=== PATIENT | male | born 1955 | race Caucasian/White ===

== ENCOUNTER 2024-02-25 19:36 | Inpatient (IN) | payer MEDICARE, BC, SELFPAY ==
[2024-02-25] VITALS (14 sets, daily range): BP systolic 138–184; BP diastolic 70–106; BMI 31.1; BMI 30.1
--- NOTE | 2024-02-25 12:56 | ED.GENMED ---
History of Present Illness
General
Chief Complaint: Abdominal Symptoms
Source: patient
Exam Limitations: none
Time Seen by Provider: 02/25/24 12:43
Travel History
Have you had any contact with someone who has COVID-19?: No
Do you have any symptoms of coronavirus? Fever > 100 degrees, chills, cough, shortness of breath, sore throat, loss of taste or smell, muscle aches, or headache?: No
History of Present Illness
History of Present Illness:
68-year-old male presents in referral from family doctor. Patient was presumed to have diverticulitis about 10 days ago. He was started on Augmentin and has had 9 days worth of Augmentin out of the prescribed 14. His pain is improved but still
persistent. He denies a fever he notes he is moving his bowels. He is eating a bland diet. Upon recheck with family doctor today he was also noted to be in atrial fibrillation. Patient has a remote history of atrial flutter which required a
cardioversion and 1 months worth of anticoagulation. He is currently not on anticoagulation. He is uncertain when the atrial fibrillation started. He denies chest pain or shortness of breath. No leg swelling or calf pain. No other complaints at
this time. He is on metoprolol 25mg daily.
Phy Exam
Physical Exam
Physical Exam:
General: Well-appearing male no acute respiratory distress
HEENT: Normocephalic atraumatic neck is supple
Heart: Irregular rate and rhythm
Lungs: Clear no wheeze or rales
Abdomen: Soft mildly tender to the left lower quadrant no guarding rebound normal bowel sounds
Extremities: No cyanosis or edema
Scores
[id number] Score for Afib Stroke Risk
Age in Years (65=0, 65-74=1, >/=75=2): 65-74
Sex (Female=+1): Male
Congestive Heart Failure History (Yes=+1): No
Hypertension History (Yes=+1): Yes
Stroke/TIA/Thromboembolism History (Yes=+2): No
Vascular Disease History (Yes=+1): No
Diabetes Mellitus (Yes=+1): No
Score: 2
Anticoagulation Recommendations: Recommend anticoagulation (as validated in nonvalvular fib)
Course
Orders/Labs/Results
Orders:
Orders
02/25/24 12:12
Electrocardiogram (*1) Urgent
Reason for Study: Atrial Fibrillation
EKG- Treatment ONCE
02/25/24 12:32
Cardiac Monitoring- Treatment ONCE
IV Insert/Care/Rem.- Treatment PRN
02/25/24 12:51
Complete Blood Count/With Diff Urgent
Comprehensive Metabolic Panel Urgent
TSH Reflex To Free T4 Urgent
Troponin I Urgent
02/25/24 12:56
Add On- LAB Urgent
Tests Added?: tsh reflex to t4
02/25/24 14:31
Apixaban [Eliquis] 5 mg PO NOW STA
02/25/24 14:32
CT Abd/pelvis W Iv Cont Urgent
Comment:
Reason For Exam: llq pain
02/25/24 17:56
Piperacillin/Tazo 3.375 Gram [Zosyn] 3.375 gram in 50 ml IV NOW
Abnormal Lab Results
02/25/24
12:51
RBC 4.17 L 10^6/uL
(4.70-6.10)
Hgb 11.1 L g/dL
(13.0-18.0)
Hct 35.0 L %
(39.0-52.0)
MCH 26.6 L pg
(27.0-31.0)
MCHC 31.7 L g/dL
(33.0-37.0)
Absolute Neuts (auto) 6.9 H 10^3/uL
(1.4-6.5)
Absolute Lymphs (auto) 0.8 L 10^3/uL
(1.2-3.4)
Neutrophils % 84.2 H %
(42.2-75.2)
Lymphocytes % 9.4 L %
(20.5-51.1)
Glucose 107 H mg/dl
(70-99)
Alkaline Phosphatase 136 H U/L
(38-126)
02/25/24 12:51
02/25/24 12:51
Vital Signs
Initial and Last Documented VS:
Initial Vital Signs
Temp Pulse Resp BP Pulse Ox
99.1 F 79 18 167/93 99
02/25/24 12:06 02/25/24 12:06 02/25/24 12:06 02/25/24 12:06 02/25/24 12:06
Last Documented Vital Signs
Temp Pulse Resp BP Pulse Ox
99.1 F 80 17 155/95 98
02/25/24 12:06 02/25/24 16:00 02/25/24 16:00 02/25/24 16:00 02/25/24 16:00
MDM/Problems Addressed
Differential Diagnosis Includes:
Persistent left lower abdominal pain after presumed to have diverticulitis currently on Augmentin. Question persistent diverticulitis versus abscess or colitis. CT pending.
Atrial fibrillation. History of atrial flutter requiring cardioversion. Onset of A-fib unknown. Rate controlled. Not a cardioversion candidate through the ER secondary to uncertainty of onset. [id number] 2 is a score of 2. Question need for
anticoagulation. He is on metoprolol 25 mg daily rate control. Vitals are stable. Will obtain labs including TSH chemistry and troponin.
*Critical Care Note
Total Time (30-74mins, 75-104mins- exclusive of procedures): Not Applicable
Update Note
Update Note:
Discussed new diagnosis of atrial fibrillation with [facility] cardiology, Dr. Wen who recommended Eliquis initiation. He is rate controlled no further intervention needed. However, patient does have a 5 cm rim-enhancing collection in the
right pelvis question possible abscess versus necrotic lymph node. Patient has a history of radical prostatectomy 3 years ago done at [place]. This also involved lymph node resection of the pelvis. Will cover for potential of abscess with IV
Zosyn. Will hold on Eliquis for now given pending potential drainage of abscess. Discussed with cardiology and hospitalist
ED Attending Note
-
Portions of this chart may have been created with voice recognition software.� Occasional wrong word or��sound alike� substitutions may have occurred due to the inherent limitations of voice recognition software.
Discharge Plan
Departure
Patient Disposition: Admit
Date of Disposition: 02/25/24
Time of Disposition: 17:58
Admit to: Telemetry
Presentation/result/management discussed w/ accepting MD/DO: Hospitalist
Discharge Problem:
Intra-abdominal abscess
Prescriptions:
No Action
cyclobenzaprine 10 MG tablet
10 mg PO Q8HPRN PRN (Reason: pain)
metoprolol succinate 50 MG tablet extended release 24 hr
50 mg PO DAILY
oxycodone-acetaminophen [Percocet] 1 EACH tablet
1 ea PO Q4HPRN PRN (Reason: pain)
azelastine 137 MCG/SPRAY aerosol,spray
1 spray intranasal BID
levofloxacin 500 MG tablet
500 mg PO DAILY
docosahexaenoic acid-epa 1 CAP capsule
2 cap PO QPM
cyclosporine [Restasis] 10 DROPS dropperette
2 drops ophthalmic (eye) BID Qty: 0 0RF
Referrals:
Zenon Kim MD [Family Provider] -
Interventions
Interventions:
*Risk Screen - Suicide Last Done: 02/25/24 12:06
*General Assessment Last Done: 02/25/24 12:06
*Neglect/Abuse Screening Last Done: 02/25/24 12:06
ED- Fall Risk Assessment Last Done: 02/25/24 12:45
*ED COVID-19 Vaccine History Last Done: 02/25/24 12:45
CS-Ltyedt-Vlnvpnxlqi Assessment Last Done: 02/25/24 13:02
Discharge Date and Time
Print Language: YORUBA
--- NOTE | 2024-02-25 13:04 | EDRN ---
chaya JENSEN in to see pt now and at 12:40.
[2024-02-25 13:07] LABS: % Basophils 0.4 % (0-2); % Eosinophils 0.9 % (0-6); % Immature Granulocytes 0.4 % (0-0.5); % Lymphocytes 9.4 % (20.5-51.1); % Monocytes 4.7 % (1.7-9.3); % Neutrophils 84.2 % (42.2-75.2); Absolute Eosinophils 0.1 10^3/uL (0-0.7); Absolute Lymphocytes 0.8 10^3/uL (1.2-3.4); Absolute Monocytes 0.4 10^3/uL (0.1-0.6); Absolute Neutrophils 6.9 10^3/uL (1.4-6.5); Hemoglobin 11.1 g/dL (13.0-18.0); Mean Corp Hgb Conc. 31.7 g/dL (33.0-37.0); Mean Corpuscular Hgb 26.6 pg (27.0-31.0); Mean Corpuscular Volume 83.9 fL (80.0-94.0); Nucleated Red Blood Cells % 0 % (-); Platelet Count 396 10^3/uL (130-400); Red Blood Cell Count 4.17 10^6/uL (4.70-6.10); Red Cell Dist. Width 14.2 % (11.5-14.5); White Blood Cell Count 8.2 10^3/uL (4.8-10.8)
[2024-02-25 13:28] LABS: Troponin I < 0.012 ng/ml
[2024-02-25 13:30] LABS: ALT (SGPT) 26 U/L (0-50); AST (SGOT) 25 U/L (17-59); Albumin 3.7 g/dl (3.5-5.0); Alkaline Phosphatase 136 U/L (38-126); Blood Urea Nitrogen 15 mg/dl (9-20); Calcium 10.2 mg/dl (8.4-10.2); Carbon Dioxide 24 mmol/L (22-30); Chloride 107 mmol/L (98-107); Estimated Creatinine Clearance 124 ml/min; Glucose 107 mg/dl (70-99); Potassium 4.3 mmol/L (3.5-5.1); Sodium 136 mmol/L (135-145); Total Bilirubin 0.5 mg/dl (0.2-1.3); Total Protein 6.7 g/dl (6.3-8.2); eGFR > 60.00
--- NOTE | 2024-02-25 15:47 | EDRN ---
Pt has an order for eliquis but stated to me when I went to administer it that it is pending CT results.
[2024-02-25 15:49] LABS: TSH Reflex To Free T4 0.89 uIU/ml (0.47-4.68)
--- NOTE | 2024-02-25 17:39 | EDRN ---
Pt was ordered Eliquis to be administered post CT results. Per Cherelle JENSEN no Peter r/t results of CT showing possible abscess, needing drainage.
[2024-02-25] MEDS: ZOSYN 50 IV (18:29)
--- NOTE | 2024-02-25 18:31 | HPS.HSE ---
Family Physician
-
Family Physician: eZnon Kim
Chief Complaint
-
abdominal pain
History of Present Illness
68 y/o M hx of prostate ca s/p radical prostatectomy, HTN, HLD, presents to ER For abdominal imaging and new Afib. He was diagnosed clinically with diverticulitis 9 days ago after having Lower abdominal pain. he was placed on Augmentin with initial
improvement until his pain returned (remains persistent mostly). He was asked to come into PCP office who noted patient is in new Afib and therefore referred him to ER For imaging.
Patient reports pain is RLQ and radiates toward RUQ and LLQ. No nausea/vomiting. No fever but reports night sweats. No chest pain, sob, palpitations. no symptoms. Reports 20 lbs weight loss in 3 months (intentional with keto diet). No loss of
appetite. No chills. No Edema.
In ER, CT imaging revealed R pelvis mass/collection. Patient admitted for evaluation.
Medical History
Past Medical History
Past Medical History: Reports Other (prostate ca s/p radical prostatectomy, HTN, HLD, hx of Aflutter s/p cardioversion 7 years ago)
Past Surgical History: Reports Tonsilectomy and Other ( radical prostatectomy)
Social History
Tobacco: Non-smoker
Alcohol: None
Drug: None
Personal:
Living: With Family
Employment: Employed ([employer])
Family History
Family History: Not pertinent
Allergies / Home Medications
Allergies reflects when Allergies were last updated in [employer].
Home Medications with original date entered in [employer]
Allergy/Medication List:
Allergies
Allergy/AdvReac Type Severity Reaction Status Date / Time
hay fever Allergy itchy eyes Uncoded 10/30/15 11:29
Home Medications
Lactobac no.2-Bifidobac no.1-S. thermo 112.5 billion cell capsule (Visbiome) 1 cap PO DAILY 02/25/24
albuterol sulfate 90 mcg/actuation aerosol inhaler (Ventolin HFA) 2 puff inhalation R Q6 PRN sob/wheezing 02/25/24
amoxicillin 875 mg-potassium clavulanate 125 mg tablet 1 tab PO Q12H 02/25/24
aspirin 81 mg tablet,delayed release 81 mg PO QPM 02/25/24
cholecalciferol (vitamin D3) 25 mcg (1,000 unit) chewable tablet (Vitamin D3) 25 mcg PO DAILY 02/25/24
lisinopril 20 mg tablet 20 mg PO QPM 02/25/24
metformin 500 mg tablet 500 mg PO DAILY 02/25/24
multivitamin 1 tab PO BID 02/25/24
simvastatin 20 mg tablet 20 mg PO QPM 02/25/24
tadalafil 5 mg tablet 5 mg PO QPM 02/25/24
Review of Systems
-
A 12 point ROS was completed and negative except as noted: Yes
Physical Exam
Vital Signs
Vital Signs
Temp Pulse Resp BP Pulse Ox
99.1 F 85 27 153/95 99
02/25/24 12:06 02/25/24 18:15 02/25/24 18:15 02/25/24 18:00 02/25/24 18:15
Physical Exam
General: Well Developed and Well Nourished
HEENT: NormoCephalic and Anicteric
Respiratory: Clear; No Wheezes, Rales or Rhonchi
Cardiac: Irregular Rhythm
GI: Soft and Other (Tender RLQ and mildly RUQ, LLQ, no peritoneal signs. no distention)
Musculoskeletal: No Cyanosis
Neuro: AO x 3
Hematologic/Lymphatic: No Lymphadenopathy
Psych: Calm
Laboratory Results
-
02/25/24 12:51
02/25/24 12:51
Laboratory Results
Total Bilirubin 0.5 mg/dl (0.2-1.3) 02/25/24 12:51
AST 25 U/L (17-59) 02/25/24 12:51
ALT 26 U/L (0-50) 02/25/24 12:51
Alkaline Phosphatase 136 U/L (38-126) H 02/25/24 12:51
Troponin I < 0.012 ng/ml 02/25/24 12:51
Data Reviewed
-
Lab Data: Labs Reviewed by me
Impression/Plan
-
Assessment:
Abdominal pain
- CT: right pelvic wall rim-enhancing low-density mass with a density of 18 Hounsfield units. This measures approximately 5.9 x 4.8 cm. The margins are hazy. Based on location, this is concerning for a necrotic lymph node. An abscess is less likely
but not completely excluded.
- consult IR for biopsy/drainage if LN vs abscess
- not clinically toxic and recently completed 9/14 days of Augmentin for clinical dx of diverticulitis. hold Abx until potential procedure to clarify nature of CT finding.
- check blood culture x 2
New onset A.fib
hx of A. flutter s/p cardioversion 7 years ago
- tele
- check TSH
- add Metoprolol XL 25mg daily
- Start Eliquis after potential procedure
- CBC cards evaluation
Prostate ca s/p radical prostatectomy and LN dissection 2020
- Dr. Valerio ([facility])
Essential HTN
- continue MINERVA and add BB
HLD
Obesity
- self lost 20 lbs with Keto
- on MFM for hx of hyperglycemia. most recently. 5.2%. Hold for now.
- continue statin
- on ASA, stop if transitioned to OAC
DVT ppx: Lovenox
Code: Full
--- NOTE | 2024-02-25 18:51 | EDRN ---
Pt is speaking to Dr. Jackson at this time using this RN's cell phone.
--- NOTE | 2024-02-25 21:30 | PTCARENOTE ---
Patient arrived to unit, AAOx3. Denies any pain. Ambulates independently. Reviewed home medication list, allergies, room safety, and call phillips. Tele box #21, Afib on monitor.
[2024-02-25] MEDS: TOPROL XL 12.5 MG PO (21:48)
[2024-02-25] MEDS: LOVENOX 40 MG SC (21:54)
[2024-02-26] VITALS (14 sets, daily range): BP systolic 85–167; BP diastolic 75–106; BMI 30.1
[2024-02-26] MEDS: TOPROL XL 25 MG PO (07:54)
[2024-02-26 08:30] LABS: Hemoglobin 12.6 g/dL (13.0-18.0); Mean Corp Hgb Conc. 31.5 g/dL (33.0-37.0); Mean Corpuscular Hgb 26.8 pg (27.0-31.0); Mean Corpuscular Volume 85.1 fL (80.0-94.0); Mean Platelet Volume 9.3 fL (7.4-10.4); Platelet Count 478 10^3/uL (130-400); Red Cell Dist. Width 14.2 % (11.5-14.5); White Blood Cell Count 8.1 10^3/uL (4.8-10.8)
[2024-02-26 09:02] LABS: Blood Urea Nitrogen 14 mg/dl (9-20); Carbon Dioxide 26 mmol/L (22-30); Chloride 107 mmol/L (98-107); Estimated Creatinine Clearance 95 ml/min; Glucose 101 mg/dl (70-99); Potassium 4.7 mmol/L (3.5-5.1); Sodium 141 mmol/L (135-145); eGFR > 60.00
--- NOTE | 2024-02-26 10:13 | CON.CAR ---
Addendum entered and electronically signed by Jose C Burnson MD 02/26/24 16:15:
68 yo male with PMH of HTN, DM, typical atrial flutter 7 yrs ago (DCCV at the time) is admitted with concern for abdominal abscess. We are consulted for new A fib. Exam with irregular rhythm, no murmurs, no edema. Tele: A fib 60s-70s.
Rate in controlled. Minimal sxs. Continue Toprol XL.
CHADS2-VASC =3. Start eliquis 5mg bid once procedures done.
Original Note:
Consultation
Consultation Request
Date/Time Consultation Requested: 02/26/2024 0800
Date/Time Consultation Performed: 02/26/2024 0945
Requesting Provider: Dr. Jackson
Performing Provider: Dr. Brunson
Reason for Consultation: AF
Medical History
-
Chief Complaint: Abdominal pain and new AF noted at PCP office
History of Present Illness:
68 y/o pt with HTN, hyperlipidemia, DM, prior history of atrial flutter who developed abdominal symptoms and treated for diverticulitis. He was seen by PCP in follow up and noted to have irreg HR and continued abdominal symptoms and was sent to ER.
In ER AF rate controlled. Pt can feel a slight irregular heart beat but denies CP, SOB. Prior to acute issues he had been walking several times a week 2-4 miles without cardiac complaints.
Past Medical History
Past Medical History: HTN, Hypercholesterolemia and Other (atrial flutter, prostate cancer)
Past Surgical History: Urological (prostatectomy)
Social History
Tobacco: Non-Smoker
Alcohol: None
Personal:
Living: With Family
Family History
Family History: Reviewed & Not Pertinent
Allergies / Home Medications
Allergy/AdvReac Type Severity Reaction Status Date / Time
omeprazole AdvReac Severe Pharmacy Verified 02/26/24 01:00
to Review
hay fever Allergy itchy eyes Uncoded 10/30/15 11:29
�Medication �Instructions �Recorded �Confirmed �Type
Lactobac no.2-Bifidobac no.1-S. 1 cap PO DAILY 02/25/24 02/25/24 History
thermo 112.5 billion cell capsule
(Visbiome)
albuterol sulfate 90 mcg/actuation 2 puff inhalation R Q6 PRN 02/25/24 02/25/24 History
aerosol inhaler (Ventolin HFA) sob/wheezing
amoxicillin 875 mg-potassium 1 tab PO Q12H 02/25/24 02/25/24 History
clavulanate 125 mg tablet
aspirin 81 mg tablet,delayed 81 mg PO QPM 02/25/24 02/25/24 History
release
cholecalciferol (vitamin D3) 25 25 mcg PO DAILY 02/25/24 02/25/24 History
mcg (1,000 unit) chewable tablet
(Vitamin D3)
lisinopril 20 mg tablet 20 mg PO QPM 02/25/24 02/25/24 History
metformin 500 mg tablet 500 mg PO DAILY 02/25/24 02/25/24 History
multivitamin 1 tab PO BID 02/25/24 02/25/24 History
simvastatin 20 mg tablet 20 mg PO QPM 02/25/24 02/25/24 History
tadalafil 5 mg tablet 5 mg PO QPM 02/25/24 02/25/24 History
Review of Systems
-
History Source: Patient
Constitutional: No Symptoms
EENT: No Symptoms
Respiratory: No Symptoms
Cardiac: No Symptoms
Abdomen/GI: Abdominal Pain (discomfort occ )
Musculoskeletal: No Symptoms
Physical Exam
Vital Signs
Temp Pulse Resp BP Pulse Ox
99.1 F 88 14 143/90 99
02/26/24 07:50 02/26/24 07:50 02/26/24 07:50 02/26/24 07:50 02/26/24 07:50
Lab Results
02/26/24 07:33
Troponin I < 0.012 ng/ml 02/25/24 12:51
Physical Exam
General: Well Developed, Well Nourished and No Apparent Distress
HEENT: Normocephalic and Moist Mucous Membranes
Respiratory: Clear
Cardiac: S1/S2 and Irregular Rhythm
GI: Soft and Normal Bowel Sounds
Musculoskeletal: No Edema
Skin: Warm and Dry
Impression / Plan
-
PAF:
-new onset duration unknown.
-prior history of atrial flutter in 2017. Had required cardioversion at that time. Did not have issues with recurrent episodes after that.
-CHADSVASC 3 ( age, HTN, DM) - eventual eliquis ( had used eliquis in past without issue) once he does not need recurrent procedures . Lovenox for now
-rate controlled on current metoprolol.
Abdominal pain
- CT: right pelvic wall rim-enhancing low-density mass with a density of 18 Hounsfield units. This measures approximately 5.9 x 4.8 cm. The margins are hazy. Based on location, this is concerning for a necrotic lymph node. An abscess is less likely
but not completely excluded.
- IR plans for biopsy/drainage if LN vs abscess
Essential HTN
- continue meds
hyperlipidemia:
-on statin
mild MR, AR:
-noted on prior echo
History of Prostate ca s/p radical prostatectomy and LN dissection 2020
Data Reviewed
-
EKG: Tracing Personally Visualized and interpreted (AF 79 bpm, non specific ST abn. )
Medical Tests (Nuc Med, Echo etc): Report Reviewed by me (Echo 03/19/2017 Hyperdynamic left ventricular systolic function. Left ventricular ejection fraction is 65-70%. Moderate concentric left ventricular hypertrophy. Mild mitral regurgitation.
Mild aortic regurgitation with possible aortic root dilation.)
Labs: Labs Reviewed by me and Discussed with Physician
Old Records: Reviewed (Prior OP cardiology notes from 2017)
--- NOTE | 2024-02-26 10:25 | W.PN.HOSP.TC ---
Addendum entered and electronically signed by Ilan Jackson MD 02/26/24 14:14:
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
start empiric Abx; follow cultures
diet
ID Consult tomorrow
Original Note:
Today's Communication/Plan
-
IR procedure for possible abscess drainage; if felt to be LN then plan Wednesday
holding Abx
rate control for A. fib
Assessment / Plan
Assessment / Plan
Assessment:
Abdominal pain
- CT: right pelvic wall rim-enhancing low-density mass with a density of 18 Hounsfield units. This measures approximately 5.9 x 4.8 cm. The margins are hazy. Based on location, this is concerning for a necrotic lymph node. An abscess is less likely
but not completely excluded.
- IR for biopsy/drainage if LN vs abscess today
- not clinically toxic and recently completed 07/01 days of Augmentin for clinical dx of diverticulitis. hold Abx until potential procedure to clarify nature of CT finding.
- follow blood cultures
New onset A.fib
hx of A. flutter s/p cardioversion 7 years ago
- tele
- TSH 0.89
- continue Metoprolol XL 25mg daily
- Start Eliquis after potential procedure(s)
- CBC cards following
Prostate ca s/p radical prostatectomy and LN dissection 2020
- Dr. Valerio ([facility])
Essential HTN
- continue MINERVA and add BB
HLD
Obesity
- self lost 20 lbs with Keto
- on MFM for hx of hyperglycemia. most recently. 5.2%. Hold for now.
- continue statin
- on ASA, stop if transitioned to OAC
Hypercalcemia
- check PTH level
thrombocytosis
DVT ppx: Lovenox
Code: Full
Anticipated Discharge: > 48 hours
Subjective/Interval History
-
Date of Service: February 26, 2024
pain controlled
no fever/chills or leukocytosis
for IR procedure this morning
Objective Data
-
Labs:
Laboratory Results
02/26/24 02/26/24
07:33 10:01
WBC Pending
Hgb Pending
Hct Pending
Plt Count Pending
PT Pending
INR Pending
Sodium 141
Potassium 4.7
Chloride 107
Carbon Dioxide 26
BUN 14
Creatinine 0.8
Glucose 101 H
Calcium 11.0 H
Vital Signs:
Vital Signs
Temp Pulse Resp BP Pulse Ox
99.1 F 88 14 143/90 99
02/26/24 07:50 02/26/24 07:50 02/26/24 07:50 02/26/24 07:50 02/26/24 07:50
Physical Exam
-
General: No Apparent Distress
HEENT: Normocephalic and Atraumatic
Respiratory: Negative Wheezes
Cardiac: Regular Rhythm and S1/S2
GI: Tender (RLQ and groin tenderness)
Genito-urinary: No Costovertebral Tender
Musculoskeletal: No Edema
Neuro: AO x 3
Hematologic / Lymphatic: No Lymphadenopathy
Psych: Calm
Data Reviewed
-
Total Time Spent with Patient (in minutes): 45
Labs: Labs Reviewed by me
[2024-02-26 10:48] LABS: Glycohemoglobin (HgbA1c) 6.3 % (4.0-5.6)
[2024-02-26 11:03] LABS: INR 1.23; PT 15.3 Sec (11.4-14.6)
--- NOTE | 2024-02-26 11:17 | CM ---
manager background reviewed patient's chart and met with patient and patient lives with his spouse, is independent with adl's and ambulation no dme, patient drives, patient has a prescription plan and uses [facility] pharmacy.
PCP: Dr Kim
Plan; Home with spouse no needs at discharge.
--- NOTE | 2024-02-26 12:52 | W.PN.UPDATE ---
Update Note
Progress Note Update
- CT guided abscess drain
- 8.5F catheter placed into R sidewall collection. 20 mL of gallardo purulent fluid immediately aspirated
- My suspicion is this represents a superinfected lymphocele with the lymphocele related to prior radical prostatectomy
--- NOTE | 2024-02-26 14:34 | PHA.VAN.IN ---
Assessment
- Assessment
Renal Function: Unknown baseline
Maximum Temperature: 99.2 on 02/25/24 at 23:17
Minimum Temperature: 97.7 on 02/26/24 at 03:42
Concomitant Antimicrobials: Piperacillin-tazobactam
AUC Dosing Plan
- Dosing Variables
Dosing Weight (kg): 97.7
Dosing CrCl (ml/min): 95
Vd coefficient (L/kg): 0.6
- Empiric Dosing
Initial / Loading Dose: Vancomycin 2000mg IV x 1 administration pending
Maintenance Regimen: Vancomycin 1000mg IV Q12 hrs starting 02/27/24 at 06:00
Estimated AUC (mcg*h/mL): 427
Estimated Peak (mcg*h/mL): 27
Estimated Trough (mcg/ml): 11
Estimated Half Life (H): 8.3
Pharmacokinetics Vancomycin I
- -
Patient Age: 68
Patient Sex: Male
Vancomycin Day #: 1
Indication: Gi / Intra-Abdominal
Requesting Provider: Dr. Sofya Jackson
Pertinent Antimicrobial Allergies:
No antibiotic allergies
Height / Weight:
Height 5 ft 11 in
Actual Weight 97.704 kg
IBW in k.3
Adjusted BW in k.3
Pertinent Past Medical History: prostate CA s/p radical prostatectomy, BMI-30
- Vital Signs / Lab Results
Temp Pulse Resp BP Pulse Ox
99.1 F 57 16 143/93 98
02/26/24 13:06 02/26/24 14:33 02/26/24 13:20 02/26/24 14:33 02/26/24 13:06
Lab Results - Hematology
02/25/24 02/26/24
12:51 07:33
WBC 8.2 8.1
Lab Results - Chemistry
02/25/24 02/26/24
12:51 07:33
BUN 15 14
Creatinine 0.7 0.8
Estimated Creat Clear 124 95
Albumin 3.7
[2024-02-26] MEDS: ZOSYN 50 IV ×2 (16:09→21:44)
[2024-02-26] MEDS: VANCOCIN 540 MG IV (17:17)
[2024-02-26] MEDS: LIPITOR 10 MG PO (18:21)
[2024-02-26] MEDS: ZESTRIL 20 MG PO (18:21)
[2024-02-26] MEDS: LOVENOX 40 MG SC (18:21)
[2024-02-26] MEDS: TYLENOL 650 MG PO (22:52)
[2024-02-27 03:00] VITALS: BP 132/80
[2024-02-27] MEDS: ZOSYN 50 IV ×4 (04:23→21:51)
[2024-02-27] MEDS: VANCOCIN 200 IV (05:29)
[2024-02-27 07:57] VITALS: BP 141/87
[2024-02-27 07:58] LABS: % Basophils 0.4 % (0-2); % Eosinophils 1.9 % (0-6); % Immature Granulocytes 0.4 % (0-0.5); % Monocytes 7.4 % (1.7-9.3); % Neutrophils 75.9 % (42.2-75.2); Absolute Eosinophils 0.1 10^3/uL (0-0.7); Absolute Monocytes 0.5 10^3/uL (0.1-0.6); Absolute Neutrophils 5.3 10^3/uL (1.4-6.5); Hematocrit 37.4 % (39.0-52.0); Hemoglobin 11.7 g/dL (13.0-18.0); Mean Corp Hgb Conc. 31.3 g/dL (33.0-37.0); Mean Corpuscular Hgb 26.7 pg (27.0-31.0); Mean Corpuscular Volume 85.4 fL (80.0-94.0); Nucleated Red Blood Cells % 0 % (-); Platelet Count 413 10^3/uL (130-400); Red Blood Cell Count 4.38 10^6/uL (4.70-6.10); Red Cell Dist. Width 14.3 % (11.5-14.5); White Blood Cell Count 6.9 10^3/uL (4.8-10.8)
[2024-02-27 08:22] LABS: Blood Urea Nitrogen 17 mg/dl (9-20); Carbon Dioxide 25 mmol/L (22-30); Chloride 109 mmol/L (98-107); Estimated Creatinine Clearance 76 ml/min; Glucose 120 mg/dl (70-99); Potassium 5.1 mmol/L (3.5-5.1); Sodium 143 mmol/L (135-145); eGFR > 60.00
[2024-02-27 08:37] LABS: Intact PTH 111.3 pg/ml (13.6-85.8)
--- NOTE | 2024-02-27 09:04 | W.PN.HOSP.TC ---
Today's Communication/Plan
-
continue IV abx and follow cultures; follow ID recs
follow hypercalc workup
continue rate control/Eliquis
Assessment / Plan
Assessment / Plan
Assessment:
Abdominal pain
- CT: right pelvic wall rim-enhancing low-density mass with a density of 18 Hounsfield units. This measures approximately 5.9 x 4.8 cm. The margins are hazy. Based on location, this is concerning for a necrotic lymph node. An abscess is less likely
but not completely excluded.
- s/p IR drainage 02/25: gallardo colored. follow drain outputs. Likely will need VN
- follow cultures from drain and blood cultures
- empiric Sam Blevins pending cultures. ID consulted
New onset A.fib
hx of A. flutter s/p cardioversion 7 years ago
- tele
- TSH 0.89
- continue Metoprolol XL 25mg daily
- Start Eliquis 5mg BID; CHADS2-VASC =3
- Echo pending
- CBC cards following
- likely CV outpatient
Prostate ca s/p radical prostatectomy and LN dissection 2020
- Dr. Valerio ([facility])
Essential HTN
- continue MINERVA and add BB
HLD
Obesity
- self lost 20 lbs with Keto
- on MFM for hx of hyperglycemia. most recently. 5.2%. Hold for now.
- continue statin
- on preventative ASA with Eliquis starting
Hypercalcemia
- elevated PTH, likely 1-PHT
- 24 hour urine ordered
- check vit D levels as he is on vit d supplement
- OP Endocrine f/u
thrombocytosis, likely reactive
- follow CBC
DVT ppx: Eliquis
Code: Full
Anticipated Discharge: > 48 hours
Subjective/Interval History
-
Date of Service: February 27, 2024
denies any new complaints
feel better after drainage
Objective Data
-
Labs:
Laboratory Results
02/27/24
06:56
WBC 6.9
Hgb 11.7 L
Hct 37.4 L
Plt Count 413 H
Sodium 143
Potassium 5.1
Chloride 109 H
Carbon Dioxide 25
BUN 17
Creatinine 1.0
Glucose 120 H
Calcium 11.0 H
Vital Signs:
Vital Signs
Temp Pulse Resp BP Pulse Ox
97.9 F 69 18 141/87 98
02/27/24 07:57 02/27/24 07:57 02/27/24 07:57 02/27/24 07:57 02/27/24 07:57
I&O
02/26/24 02/27/24 02/28/24
06:59 06:59 06:59
Intake Total 1810 / 1810
Output Total 50 / 50
Balance 1760 / 1760
Physical Exam
-
General: No Apparent Distress
HEENT: Normocephalic and Atraumatic
Respiratory: Negative Wheezes or Rales
Cardiac: Regular Rhythm and S1/S2
GI: Soft and Other (pelvic drain, gallardo colored)
Genito-urinary: No Costovertebral Tender
Musculoskeletal: No Edema
Neuro: AO x 3
Hematologic / Lymphatic: No Lymphadenopathy
Psych: Calm
Data Reviewed
-
Total Time Spent with Patient (in minutes): 43
Labs: Labs Reviewed by me
[2024-02-27] MEDS: TOPROL XL 25 MG PO (09:09)
[2024-02-27 11:07] VITALS: BP 158/64
[2024-02-27] MEDS: ELIQUIS 5 MG PO ×2 (11:24→20:18)
--- NOTE | 2024-02-27 12:19 | PHA.VAN.FU ---
Vancomycin Assessment / Plan
- Assessment
Renal Function: SCR Increasing (0.8>1.0 (starting to creep up))
WBC's are: Trending Down (8.1>6.9)
In the past 24 hrs, patient has been: Afebrile
Concomitant Antimicrobials: Piperacillin-tazobactam
- Dosing Plan
Continue: Vancomycin 1000mg IV Q12 hrs
- Monitoring Plan
No level(s) ordered at this time: Consider levels tomorrow 02/28/24 at steady state
- Follow Up
Pharmacy will continue to follow.
Vancomycin Follow UP
- -
Patient Age: 68
Patient Sex: Male
Vancomycin Day #: 2
Indication: Gi / Intra-Abdominal
Requesting Provider: Dr. Sofya Jackson
Pertinent Antimicrobial Allergies:
No antibiotic allergies
Height / Weight:
Height 5 ft 11 in
Actual Weight 97.704 kg
IBW in k.3
Adjusted BW in k.3
Pertinent Past Medical History: prostate CA s/p radical prostatectomy, BMI-30
- Vital Signs / Lab Results
Temp Pulse Resp BP Pulse Ox
98.3 F 72 20 158/64 99
02/27/24 11:07 02/27/24 11:07 02/27/24 11:07 02/27/24 11:07 02/27/24 11:07
Lab Results - Hematology
02/25/24 02/26/24 02/27/24
12:51 07:33 06:56
WBC 8.2 8.1 6.9
Lab Results - Chemistry
02/25/24 02/26/24 02/27/24
12:51 07:33 06:56
BUN 15 14 17
Creatinine 0.7 0.8 1.0
Estimated Creat Clear 124 95 76
Albumin 3.7
Microbiology Results
02/26/24 12:45 Wound Culture - Preliminary
Abscess Gram Stain - Preliminary
02/25/24 21:55 Blood Culture - Preliminary
Blood/Venous No Growth in 24 hours- Final report to follow
02/25/24 21:20 Blood Culture - Preliminary
Blood/Venous No Growth in 24 hours- Final report to follow
--- NOTE | 2024-02-27 14:13 | W.PN.CD ---
Today's Communication / Plan
-
continue Toprol XL and eliquis
echo in AM
Impression / Plan
-
Atrial fibrillation, new, type unknown
-prior h/o atrial flutter in 2006, s/p DCCV, without recurrence
-in setting of abdominal infection
-CHADSVASC 3 ( age, HTN, DM): start eliquis 5mg bid
-rate controlled on current metoprolol: continue Toprol XL 25mg daily
-echo tomorrow
-we discussed topic of DCCV and also PVI if remains in A fib at office follow up
Abdominal pain
-superinfected lymphocele is suspected s/p IR drainage
-Abx per hospitalist
Essential HTN
-continue lisinopril 20mg daily, Toprol XL 25mg daily
hyperlipidemia
-continue on statin
mild MR, A
-follow up echo
History of Prostate ca s/p radical prostatectomy and LN dissection 2020
Physical Exam
Vital Signs/Labs
Vital Signs
Temp Pulse Resp BP Pulse Ox
98.3 F 72 20 158/64 99
02/27/24 11:07 02/27/24 11:07 02/27/24 11:07 02/27/24 11:07 02/27/24 11:07
02/26/24 02/27/24 02/28/24
06:59 06:59 06:59
Actual Weight 97.704 kg
02/27/24 06:56
02/27/24 06:56
PT 15.3 Sec (11.4-14.6) H 02/26/24 10:01
INR 1.23 02/26/24 10:01
LAB Results
02/25/24
12:51
Troponin I < 0.012
Physical Exam
Constitutional: No acute distress and Comfortable
EENT: Moist mucous membranes
Cardiovascular: Pedal edema is absent, JVD pressure is normal, Systolic murmur absent and Rhythm/rate is irregular
Respiratory: Respiratory effort normal, Lungs clear to auscul. and Wheeze Absent
GI: Soft
Neuro/Psych: AO x 3
Data Reviewed
-
Date of Service: February 27, 2024
EKG: Other (Tele: A fib 60s)
Labs: Labs Reviewed by me
[2024-02-27 15:15] VITALS: BP 156/80
--- NOTE | 2024-02-27 15:43 | CON.ID ---
Consultation
-
Date/Time Consultation Requested: 02/27/2024 08:46
Date/Time Consultation Performed: 02/27/2024 1500
Requesting Provider: Dr. Jackson
Performing Provider: Dr. Velasquez
Reason for Consultation: Pelvic abscess
Chief Complaint / Past History
History of Present Illness
Colin Urena is a 68-year-old man being evaluated at the request of Dr. Jackson in regards to a pelvic abscess. History is obtained from chart review, along with patient interview.
Patient reports a history of prior prostate cancer, and approximately 3 years ago underwent a radical prostatectomy at [facility]. In the interim, he has done well. He reports that he had been evaluated in late January by his PCP and
given a clean bill of health. He recently needed to travel to [place] for a , and while there developed some abdominal discomfort. He reported that he felt somewhat like constipation, but was also having some urinary discomfort. He reports
that he was diagnosed with diverticulitis approximately 9 days ago and was placed on Augmentin. He had gone into his PCP office for follow-up and was found to be new A-fib and was sent to the ER for further care. Once here, imaging revealed a
right pelvic collection, which has since been drained by IR. Infectious Diseases is asked to comment upon further antimicrobial management.
At this time he reports that he he is overall feeling markedly improved. He does admit to prior fevers and chills and also some sweats. He admits to prior diarrhea. He denies any nausea or vomiting. He currently notes no abdominal discomfort.
Past History
Additional Past Medical History:
Hx prostate cancer
HTN
Dyslipidemia
A-fib (new)
SUSAN
Additional Past Surgical History:
Radical prostatectomy
Tonsillectomy
Lumbar laminectomy
Allergy History:
omeprazole Adverse Reaction (Severe, Verified 02/26/24 01:00)
Pharmacy to Review
hay fever Allergy (Uncoded 10/30/15 11:29)
itchy eyes
Medications Reviewed: Yes
Current Antibiotics:
Vancomycin
Zosyn
Social History
Tobacco: Non-Smoker
Alcohol: None
Drug: None
Personal:
Living: With Family
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
Family History
Family History: Not Pertinent
Review of Systems
Vital Signs
Temp Pulse Resp BP Pulse Ox
98.3 F 72 20 158/64 99
02/27/24 11:07 02/27/24 11:07 02/27/24 11:07 02/27/24 11:07 02/27/24 11:07
Physical Exam
Physical Exam
Constitutional: No Acute Distress, Comfortable and Non-toxic
Head: Normocephalic
Eyes: No Conjunctival Hemorrhage and Sclera Anicteric
Pharynx: Benign
Oral: No Thrush and No Ulcers
Cardiovascular: Irregular Rate and S1/S2; Negative S3/S4 or Murmur
Pulmonary: Clear; Negative Wheezes, Rales or Rhonchi
Gastrointestinal: Soft, Non Tender, Non Distended, Normal Bowel Sounds, No Rebound, No Guarding and Other (Right pelvic ROBERT in place.)
Extremities: Negative Edema, Cyanosis or Erythema
Skin: Warm and Dry; Negative Rash or Jaundice
Neurological: Awake and Alert
Psychological: Calm
Lab / Diagnostic Study Results
02/27/24 06:56
02/27/24 06:56
Abs Immat Gran (auto) 0.0 10^3/uL (0-0.05) 02/27/24 06:56
Absolute Neuts (auto) 5.3 10^3/uL (1.4-6.5) 02/27/24 06:56
Absolute Lymphs (auto) 1.0 10^3/uL (1.2-3.4) L 02/27/24 06:56
Absolute Monos (auto) 0.5 10^3/uL (0.1-0.6) 02/27/24 06:56
Absolute Basos (auto) 0.0 10^3/uL (0-0.2) 02/27/24 06:56
Immature Gran % 0.4 % (0-0.5) 02/27/24 06:56
Neutrophils % 75.9 % (42.2-75.2) H 02/27/24 06:56
Lymphocytes % 14.0 % (20.5-51.1) L 02/27/24 06:56
Monocytes % 7.4 % (1.7-9.3) 02/27/24 06:56
Eosinophils % 1.9 % (0-6) 02/27/24 06:56
Basophils % 0.4 % (0-2) 02/27/24 06:56
PT 15.3 Sec (11.4-14.6) H 02/26/24 10:01
INR 1.23 02/26/24 10:01
Microbiology Results
Micro:
02/26/24 12:45 Wound Culture - Preliminary
Abscess Gram Stain - Many WBC's; Rare GPC's
02/25/24 21:55 Blood Culture - Preliminary
Blood/Venous No Growth in 24 hours- Final report to follow
02/25/24 21:20 Blood Culture - Preliminary
Blood/Venous No Growth in 24 hours- Final report to follow
02/26/24 16:30 MRSA Screen - Pending
Nose
Imaging:
02/25/2024 CT abdomen/pelvis with IV contrast: Right adnexal wall rim-enhancing fluid collection suspected to be a necrotic lymph node. Abscess formation not excluded. Clinical and laboratory correlation recommended. Moderate fecal material
throughout the colon. Mild diverticulosis. No evidence of acute diverticulitis. Nonobstructing bilateral renal stones noted.
Assessment / Plan
Pelvic collection/abscess
- S/P drainage
Normal white count with left shift
Hx prostate cancer
HTN
Dyslipidemia
A-fib (new)
SUSAN
Recommendations:
Continue with empiric Zosyn.
Likelihood of MRSA is low; will discontinue further vancomycin for the present.
Await further culture data to guide antimicrobial therapy.
Monitor white count and temperature curve.
Monitor drain output.
[2024-02-27] MEDS: ZESTRIL 20 MG PO (17:59)
[2024-02-27] MEDS: LIPITOR 10 MG PO (18:00)
[2024-02-27 19:00] VITALS: BP 143/100
[2024-02-27] MEDS: SENOKOT-S 1 TABLET PO (20:28)
[2024-02-27 23:00] VITALS: BP 157/88
[2024-02-28 03:00] VITALS: BP 154/89
[2024-02-28] MEDS: ZOSYN 50 IV ×4 (03:48→21:51)
[2024-02-28 07:00] VITALS: BP 157/97
[2024-02-28 08:11] LABS: Ionized Calcium 1.39 mMOL/L (1.15-1.33)
[2024-02-28 08:27] LABS: % Basophils 0.4 % (0-2); % Eosinophils 2.4 % (0-6); % Immature Granulocytes 0.4 % (0-0.5); % Monocytes 6.6 % (1.7-9.3); % Neutrophils 72.2 % (42.2-75.2); Absolute Eosinophils 0.1 10^3/uL (0-0.7); Absolute Monocytes 0.4 10^3/uL (0.1-0.6); Absolute Neutrophils 3.8 10^3/uL (1.4-6.5); Hemoglobin 12.3 g/dL (13.0-18.0); Mean Corp Hgb Conc. 32.4 g/dL (33.0-37.0); Mean Corpuscular Hgb 26.9 pg (27.0-31.0); Mean Corpuscular Volume 83.2 fL (80.0-94.0); Mean Platelet Volume 8.7 fL (7.4-10.4); Nucleated Red Blood Cells % 0 % (-); Platelet Count 463 10^3/uL (130-400); Red Blood Cell Count 4.57 10^6/uL (4.70-6.10); Red Cell Dist. Width 14.1 % (11.5-14.5); White Blood Cell Count 5.3 10^3/uL (4.8-10.8)
[2024-02-28 08:30] LABS: Blood Urea Nitrogen 19 mg/dl (9-20); Calcium 10.8 mg/dl (8.4-10.2); Carbon Dioxide 26 mmol/L (22-30); Chloride 108 mmol/L (98-107); Estimated Creatinine Clearance 76 ml/min; Glucose 97 mg/dl (70-99); Potassium 4.6 mmol/L (3.5-5.1); Sodium 142 mmol/L (135-145); eGFR > 60.00
[2024-02-28] MEDS: ELIQUIS 5 MG PO ×2 (08:57→20:30)
[2024-02-28] MEDS: TOPROL XL 25 MG PO ×2 (08:57→12:20)
[2024-02-28 09:56] LABS: Vitamin D, 25-OH*** 40.4 ng/mL (30-80)
--- NOTE | 2024-02-28 10:52 | W.PN.CD ---
Today's Communication / Plan
-
Need better bp control
- Will ADD Aldactone and increase metoprolol
Will need f/u with us in the office
Impression / Plan
-
New Atrial fibrillation, pattern/type unknown
- Remote atrial flutter, s/p cardioversion 2006
- [id number] 3 (age1, HTN, DM) => now on Eliquis 5mg bid
- Rate OK with metoprolol
- Will discuss options for rhythm control (DCCV, PVI, AAD) vs rate control in office once infection resolved
Dilated Aorta
- Asc Ao 4.7
- Will need yearly echos
Abdominal pain/superinfected lymphocele is suspected s/p IR drainage
- ID/hospitalist
Essential HTN
- LVH on remote echo
- LVH is now severe
Hyperlipidemia
Hx mild valvular heart disease on remote echo
- Still mild on echo 02/28/2024
DM, type II
ED
Nonobstructive, CAD by cath 2010, max lesion 30-40%
Mixed hyperlipidemia
BMI 30
Hx Prostate ca, s/p radical prostatectomy and LN dissection 2020
Subjective:
No CP, palps, dyspnea
Echo 02/28/2024: LVEF 60%, severe LVH, AoV sclerosis, mild AR, SOV 4, Asc Ao 4.7
Physical Exam
Vital Signs/Labs
Vital Signs
Temp Pulse Resp BP Pulse Ox
97.8 F 78 15 157/97 98
02/28/24 07:00 02/28/24 07:00 02/28/24 07:00 02/28/24 07:00 02/28/24 08:45
02/28/24 07:48
02/28/24 07:48
PT 15.3 Sec (11.4-14.6) H 02/26/24 10:01
INR 1.23 02/26/24 10:01
LAB Results
02/25/24
12:51
Troponin I < 0.012
Physical Exam
Constitutional: No acute distress
Cardiovascular: Rhythm/rate is irregular and S1S2 is normal
Respiratory: Respiratory effort normal and Lungs clear to auscul.
GI: Soft and Distention absent
Neuro/Psych: AO x 3
Data Reviewed
-
Date of Service: February 28, 2024
[2024-02-28 11:00] VITALS: BP 166/97
[2024-02-28] MEDS: SENOKOT-S 1 TABLET PO (11:33)
[2024-02-28] MEDS: MIRALAX 17 GRAMS PO (11:33)
[2024-02-28] MEDS: ALDACTONE 25 MG PO (12:01)
--- NOTE | 2024-02-28 13:13 | W.PN.ID1 ---
Date of Service
Date of Service: February 28, 2024
Today's Communication
Continue antibiotics
Assessment / Plan
Pelvic collection/abscess
- S/P drainage
-Cultures with 'normal cutaneous stacey'
Normal white count with left shift
Hx prostate cancer
HTN
Dyslipidemia
A-fib (new)
SUSAN
Recommendations:
Continue with empiric Zosyn.
Vancomycin previously discontinued.
Await further culture data to guide antimicrobial therapy.
Monitor white count and temperature curve.
Monitor drain output.
Chief Complaint
-: Other (Pelvic abscess)
Subjective / Review of Systems
Review of Systems: No Fever and No Chills
Vital Signs / Physical Exam
Vital Signs
Vital Signs
Temp Pulse Resp BP Pulse Ox
98.4 F 78 16 166/97 95
02/28/24 11:00 02/28/24 11:00 02/28/24 11:00 02/28/24 11:00 02/28/24 11:00
Physical Exam
Constitutional: No Acute Distress, Comfortable and Non-toxic
Pulmonary: Non Labored
Gastrointestinal: Non Distended and Other (ROBERT in place with cloudy serous fluid.)
Extremities: Negative Edema, Cyanosis or Erythema
Skin: Warm and Dry; Negative Rash or Jaundice
Neurological: Awake and Alert
Psychological: Calm
Objective Data
Lab Data
Lab Results
02/28/24 07:48
02/28/24 07:48
PT 15.3 Sec (11.4-14.6) H 02/26/24 10:01
INR 1.23 02/26/24 10:01
Estimated Creat Clear 76 ml/min 02/28/24 07:48
Total Bilirubin 0.5 mg/dl (0.2-1.3) 02/25/24 12:51
AST 25 U/L (17-59) 02/25/24 12:51
ALT 26 U/L (0-50) 02/25/24 12:51
Alkaline Phosphatase 136 U/L (38-126) H 02/25/24 12:51
Most recent labs reviewed.
Micro Results:
02/26/24 12:45 Wound Culture - Preliminary
Abscess Gram Stain - Final
02/26/24 16:30 MRSA Screen - Final
Nose No Methicillin Resistant Staphylococcus aureus isolated.
02/25/24 21:55 Blood Culture - Preliminary
Blood/Venous No Growth in 48 hours- Final report to follow
02/25/24 21:20 Blood Culture - Preliminary
Blood/Venous No Growth in 48 hours- Final report to follow
Imaging:
02/25/2024 CT abdomen/pelvis with IV contrast: Right adnexal wall rim-enhancing fluid collection suspected to be a necrotic lymph node. Abscess formation not excluded. Clinical and laboratory correlation recommended. Moderate fecal material
throughout the colon. Mild diverticulosis. No evidence of acute diverticulitis. Nonobstructing bilateral renal stones noted.
[2024-02-28 15:00] VITALS: BP 115/54
--- NOTE | 2024-02-28 15:17 | CM ---
Patient seen bedside, reports no needs to CM at this time. CM will continue to follow for discharge planning needs.
Plan; home no needs.
[2024-02-28] MEDS: LIPITOR 10 MG PO (17:09)
[2024-02-28] MEDS: ZESTRIL PO (17:10)
--- NOTE | 2024-02-28 17:20 | W.PN.HOSP.TC ---
Today's Communication/Plan
-
maintain on abx
await further culture data
Assessment / Plan
Assessment / Plan
Right Pelvic abscess
Diverticulitis
- CT: right pelvic wall rim-enhancing low-density mass with a density of 18 Hounsfield units. This measures approximately 5.9 x 4.8 cm. The margins are hazy. Based on location, this is concerning for a necrotic lymph node. An abscess is less likely
but not completely excluded.
- s/p IR drainage 02/25: gallardo colored. follow drain outputs. Likely will need VN
- empiric Sam Blevins pending cultures.
-Blood culture showing mixed organism. ID have asked for further identification
New onset A.fib
hx of A. flutter s/p cardioversion 7 years ago
- tele
- TSH 0.89
- continue Metoprolol XL 25mg daily
- Start Eliquis 5mg BID; CHADS2-VASC =3
- Echo showing prserved EF and dilated aortic root.
- CBC cards following
Prostate ca s/p radical prostatectomy and LN dissection 2020
- Dr. Valerio ([facility])
Essential HTN
- continue MINERVA and add BB
HLD
Obesity
- self lost 20 lbs with Keto
- on MFM for hx of hyperglycemia. most recently. 5.2%. Hold for now.
- continue statin
- on preventative ASA with Eliquis starting
Hypercalcemia
- elevated PTH, likely 1-PHT
- 24 hour urine ordered. vit D level pending.
- OP Endocrine f/u
- Patient advised not to take calcium/vitamin D supplements
thrombocytosis, likely reactive
- follow CBC
DVT ppx: Eliquis
Code: Full
Anticipated Discharge: 24 - 48 hours
Subjective/Interval History
-
Date of Service: February 28, 2024
No significant abdominal pain lower abdominal
ROBERT drain output has decreased
afebrile
Objective Data
-
Labs:
Laboratory Results
02/28/24
07:48
WBC 5.3
Hgb 12.3 L
Hct 38.0 L
Plt Count 463 H
Sodium 142
Potassium 4.6
Chloride 108 H
Carbon Dioxide 26
BUN 19
Creatinine 1.0
Glucose 97
Calcium 10.8 H
Vital Signs:
Vital Signs
Temp Pulse Resp BP Pulse Ox
97.5 F 61 24 115/54 97
02/28/24 15:00 02/28/24 15:00 02/28/24 15:00 02/28/24 17:10 02/28/24 15:00
I&O
02/27/24 02/28/24 02/29/24
06:59 06:59 06:59
Intake Total 1810 / 1810 1450 / 1450
Output Total 50 / 50 35 / 35
Balance 1760 / 1760 1415 / 1415
Review of Systems
-
Respiratory: Reports No Symptoms
Cardiac: Reports No Symptoms
Abdomen/GI: Reports No Symptoms
Physical Exam
-
General: No Apparent Distress
HEENT: Normocephalic and Atraumatic
Respiratory: Negative Wheezes or Rales
Cardiac: Regular Rhythm and S1/S2
GI: Soft, Nontender, Nondistended and Other (pelvic drain, gallardo colored)
Genito-urinary: No Costovertebral Tender
Musculoskeletal: No Edema
Neuro: AO x 3
Hematologic / Lymphatic: No Lymphadenopathy
Psych: Calm
[2024-02-28 19:25] VITALS: BP 169/98
[2024-02-28 23:33] VITALS: BP 164/90
[2024-02-29] VITALS (8 sets, daily range): BP systolic 156–188; BP diastolic 82–105
[2024-02-29] MEDS: ZOSYN 50 IV ×4 (04:45→21:35)
[2024-02-29 08:16] LABS: % Basophils 0.7 % (0-2); % Eosinophils 2.6 % (0-6); % Immature Granulocytes 0.4 % (0-0.5); % Lymphocytes 18.7 % (20.5-51.1); % Monocytes 7.4 % (1.7-9.3); % Neutrophils 70.2 % (42.2-75.2); Absolute Eosinophils 0.2 10^3/uL (0-0.7); Absolute Lymphocytes 1.1 10^3/uL (1.2-3.4); Absolute Monocytes 0.4 10^3/uL (0.1-0.6); Hematocrit 40.3 % (39.0-52.0); Hemoglobin 12.6 g/dL (13.0-18.0); Mean Corp Hgb Conc. 31.3 g/dL (33.0-37.0); Mean Corpuscular Hgb 26.4 pg (27.0-31.0); Mean Corpuscular Volume 84.3 fL (80.0-94.0); Mean Platelet Volume 8.7 fL (7.4-10.4); Nucleated Red Blood Cells % 0 % (-); Platelet Count 439 10^3/uL (130-400); Red Blood Cell Count 4.78 10^6/uL (4.70-6.10); White Blood Cell Count 5.7 10^3/uL (4.8-10.8)
[2024-02-29] MEDS: ELIQUIS 5 MG PO ×2 (08:18→20:14)
[2024-02-29] MEDS: ALDACTONE 25 MG PO (08:18)
[2024-02-29] MEDS: TOPROL XL 50 MG PO (08:19)
[2024-02-29 08:32] LABS: Urine Calcium 21.7 mg/dl
--- NOTE | 2024-02-29 08:46 | W.PN.CD ---
Today's Communication / Plan
-
I will see in April. F/u placed in chart
will consider MRI/MRA for aorta and LVH
Please call with questions.
Impression / Plan
-
New Atrial fibrillation, pattern/type unknown
- Remote atrial flutter, s/p cardioversion 2006
- [id number] 3 (age1, HTN, DM) => now on Eliquis 5mg bid
- Rate OK with metoprolol
- Will discuss options for rhythm control (DCCV, PVI, AAD) vs rate control in office once infection resolved => f/u with me placed in chart
Dilated Aorta
- Asc Ao 4.7
- Will need yearly echo's, will consider MRI/MRA for aorta and LVH
Abdominal pain/superinfected lymphocele is suspected s/p IR drainage
- ID/hospitalist
Essential HTN
- LVH on remote echo
- LVH is now severe => will consider MRI/MRA for aorta and LVH
Hyperlipidemia
Hx mild valvular heart disease on remote echo
- Still mild on echo 02/28/2024
DM, type II
ED
Nonobstructive, CAD by cath 2010, max lesion 30-40%
Mixed hyperlipidemia
BMI 30
Hx Prostate ca, s/p radical prostatectomy and LN dissection 2020
Subjective:
No CP, palps, dyspnea
Echo 02/28/2024: LVEF 60%, severe LVH, AoV sclerosis, mild AR, SOV 4, Asc Ao 4.7
Physical Exam
Vital Signs/Labs
Vital Signs
Temp Pulse Resp BP Pulse Ox
98.5 F 67 17 156/94 97
02/29/24 07:05 02/29/24 07:05 02/29/24 07:05 02/29/24 07:05 02/29/24 07:05
02/29/24 07:51
PT 15.3 Sec (11.4-14.6) H 02/26/24 10:01
INR 1.23 02/26/24 10:01
Physical Exam
Constitutional: No acute distress
Cardiovascular: Rhythm & rate is regular, Pedal edema is absent and Systolic murmur absent
Respiratory: Respiratory effort normal and Lungs clear to auscul.
GI: Soft and Distention absent
Neuro/Psych: AO x 3
Data Reviewed
-
Date of Service: February 29, 2024
[2024-02-29 09:03] LABS: 24 Hour Urine Calcium 368.9 mg/day; 24 Hour Urine Total Volume 1700 ml
[2024-02-29 09:05] LABS: Blood Urea Nitrogen 17 mg/dl (9-20); Calcium 10.8 mg/dl (8.4-10.2); Carbon Dioxide 29 mmol/L (22-30); Chloride 106 mmol/L (98-107); Estimated Creatinine Clearance 76 ml/min; Glucose 99 mg/dl (70-99); Potassium 4.8 mmol/L (3.5-5.1); Sodium 143 mmol/L (135-145); eGFR > 60.00
--- NOTE | 2024-02-29 12:30 | PTCARENOTE ---
Pt's right forearm noted with some redness and swollen from previous IV site. Dr. Najera aware. Warm compress applied.
--- NOTE | 2024-02-29 15:05 | W.PN.HOSP.TC ---
Today's Communication/Plan
-
see note
Assessment / Plan
Assessment / Plan
Right Pelvic abscess
Diverticulitis
- CT: right pelvic wall rim-enhancing low-density mass with a density of 18 Hounsfield units. This measures approximately 5.9 x 4.8 cm. The margins are hazy. Based on location, this is concerning for a necrotic lymph node. An abscess is less likely
but not completely excluded.
- s/p IR drainage 02/25: gallardo colored. follow drain outputs. VN service at discharge.
- maintain on zosyn.
- Drain culture showing mixed organism. ID have asked for further identification and reported to be staph epi
- await further ID input
New onset A.fib
hx of A. flutter s/p cardioversion 7 years ago
- tele
- TSH 0.89
- continue Metoprolol XL 25mg daily
- Start Eliquis 5mg BID; CHADS2-VASC =3
- Echo showing preserved EF and dilated aortic root.
- CBC cards following
Left ventricular hypertrophy
Dilated ascending aorta
-Cardiology planning for patient to follow-up in office and likely get an cardiac gated MRI
Prostate ca s/p radical prostatectomy and LN dissection 2020
- Dr. Valerio ([facility])
Essential HTN
- continue MINERVA and add BB
HLD
Obesity
- self lost 20 lbs with Keto
- on MFM for hx of hyperglycemia. most recently. 5.2%. Hold for now.
- continue statin
- on preventative ASA with Eliquis starting
Hypercalcemia
Presumed Primary Hyperparathyroidism
- elevated PTH of 111. normal Vit D25 OH level
- Increased Ca excretion on 24hr urine check . 24 hour urine ca of 370. (upper normal 300)
- Patient advised not to take calcium/vitamin D supplements
- Patient will need to f/u with endocrinology in office.
thrombocytosis, likely reactive
- follow CBC
DVT ppx: Eliquis
Code: Full
Anticipated Discharge: Within 24 hours
Subjective/Interval History
-
Date of Service: February 29, 2024
abd pain better
no fever overnight
ROBERT drain output decreased
Objective Data
-
Labs:
Laboratory Results
02/29/24
07:51
WBC 5.7
Hgb 12.6 L
Hct 40.3
Plt Count 439 H
Sodium 143
Potassium 4.8
Chloride 106
Carbon Dioxide 29
BUN 17
Creatinine 1.0
Glucose 99
Calcium 10.8 H
Vital Signs:
Vital Signs
Temp Pulse Resp BP Pulse Ox
97.6 F 72 17 158/95 97
02/29/24 11:00 02/29/24 11:00 02/29/24 11:00 02/29/24 11:00 02/29/24 11:00
I&O
02/28/24 02/29/24 03/01/24
06:59 06:59 06:59
Intake Total 1550 / 1550 1265 / 1265
Output Total 35 / 35 820 / 820
Balance 1515 / 1515 445 / 445
Review of Systems
-
Respiratory: Reports No Symptoms
Cardiac: Reports No Symptoms
Abdomen/GI: Reports No Symptoms
Physical Exam
-
General: No Apparent Distress
HEENT: Normocephalic and Atraumatic
Respiratory: Negative Wheezes or Rales
Cardiac: Regular Rhythm and S1/S2
GI: Soft, Nontender, Nondistended and Other (pelvic drain, gallardo colored)
Genito-urinary: No Costovertebral Tender
Musculoskeletal: No Edema and Other (Right forearm swelling)
Neuro: AO x 3
Hematologic / Lymphatic: No Lymphadenopathy
Psych: Calm
--- NOTE | 2024-02-29 15:59 | CM ---
Patient seen bedside. CM offered VN to patient, patient declining and reports he hopes to return to work shortly after discharge. Patient reports he is feeling much better and hopeful to discharge tomorrow. CM will continue to follow for discharge
planning needs.
Plan; home no needs, declining VN for drain care, reports having a drain in the past.
--- NOTE | 2024-02-29 16:18 | W.PN.ID1 ---
Date of Service
Date of Service: February 29, 2024
Today's Communication
Continue abx.
Assessment / Plan
Pelvic collection/abscess
- S/P drainage
-Cultures with 'normal cutaneous stacey'; workup in progress.
Normal white count with left shift
Hx prostate cancer
HTN
Dyslipidemia
A-fib (new)
SUSAN
Recommendations:
Continue with empiric Zosyn.
Vancomycin previously discontinued.
Await further culture data to guide antimicrobial therapy.
Monitor white count and temperature curve.
Monitor drain output.
Chief Complaint
-: Other (Pelvic abscess)
Subjective / Review of Systems
Review of Systems: No Fever and No Chills
Vital Signs / Physical Exam
Vital Signs
Vital Signs
Temp Pulse Resp BP Pulse Ox
98.5 F 74 18 188/105 100
02/29/24 15:40 02/29/24 15:40 02/29/24 15:40 02/29/24 15:40 02/29/24 15:40
Physical Exam
Constitutional: No Acute Distress, Comfortable and Non-toxic
Eyes: Sclera Anicteric
Cardiovascular: S1/S2; Negative S3/S4
Pulmonary: Clear and Non Labored
Gastrointestinal: Non Distended and Other (ROBERT in place with scant fluid)
Neurological: Awake and Alert
Psychological: Calm
Objective Data
Lab Data
Lab Results
02/29/24 07:51
02/29/24 07:51
PT 15.3 Sec (11.4-14.6) H 02/26/24 10:01
INR 1.23 02/26/24 10:01
Estimated Creat Clear 76 ml/min 02/29/24 07:51
Total Bilirubin 0.5 mg/dl (0.2-1.3) 02/25/24 12:51
AST 25 U/L (17-59) 02/25/24 12:51
ALT 26 U/L (0-50) 02/25/24 12:51
Alkaline Phosphatase 136 U/L (38-126) H 02/25/24 12:51
Most recent labs reviewed.
Micro Results:
02/26/24 12:45 Wound Culture - Preliminary
Abscess Coagulase neg. staphylococcus
Gram Stain - Final
02/25/24 21:55 Blood Culture - Preliminary
Blood/Venous No Growth in 72 hours- Final report to follow
02/25/24 21:20 Blood Culture - Preliminary
Blood/Venous No Growth in 72 hours- Final report to follow
02/26/24 16:30 MRSA Screen - Final
Nose No Methicillin Resistant Staphylococcus aureus isolated.
Imaging:
02/25/2024 CT abdomen/pelvis with IV contrast: Right adnexal wall rim-enhancing fluid collection suspected to be a necrotic lymph node. Abscess formation not excluded. Clinical and laboratory correlation recommended. Moderate fecal material
throughout the colon. Mild diverticulosis. No evidence of acute diverticulitis. Nonobstructing bilateral renal stones noted.
[2024-02-29] MEDS: ZESTRIL 20 MG PO (17:11)
[2024-02-29] MEDS: LIPITOR 10 MG PO (17:11)
[2024-02-29 18:37] LABS: Vitamin D 1,25 Dihydroxy 45.7 pg/mL (19.9-79.3)
[2024-03-01 03:33] VITALS: BP 151/94
--- NOTE | 2024-03-01 04:09 | DOWNTIME ---
There was a [employer] Downtime on 02/29/2024 from 0100 to 03/01/2024 at 0300. Downtime documentation of patient's care, including medication administrations, has been reconciled in the electronic record per guidelines. Refer to the
patient's paper chart under the miscellaneous tab to see printed paper medication records and downtime forms.
[2024-03-01] MEDS: ZOSYN 50 IV ×3 (04:30→14:58)
[2024-03-01 06:57] LABS: % Basophils 0.7 % (0-2); % Eosinophils 2.1 % (0-6); % Immature Granulocytes 0.5 % (0-0.5); % Lymphocytes 19.8 % (20.5-51.1); % Monocytes 8.9 % (1.7-9.3); Absolute Eosinophils 0.1 10^3/uL (0-0.7); Absolute Lymphocytes 1.2 10^3/uL (1.2-3.4); Absolute Monocytes 0.5 10^3/uL (0.1-0.6); Absolute Neutrophils 4.1 10^3/uL (1.4-6.5); Hematocrit 39.1 % (39.0-52.0); Hemoglobin 12.4 g/dL (13.0-18.0); Mean Corp Hgb Conc. 31.7 g/dL (33.0-37.0); Mean Corpuscular Hgb 26.8 pg (27.0-31.0); Mean Corpuscular Volume 84.4 fL (80.0-94.0); Mean Platelet Volume 8.5 fL (7.4-10.4); Nucleated Red Blood Cells % 0 % (-); Platelet Count 405 10^3/uL (130-400); Red Blood Cell Count 4.63 10^6/uL (4.70-6.10); Red Cell Dist. Width 14.1 % (11.5-14.5); White Blood Cell Count 6.1 10^3/uL (4.8-10.8)
[2024-03-01 07:00] VITALS: BP 152/89
[2024-03-01 07:31] LABS: Blood Urea Nitrogen 18 mg/dl (9-20); Calcium 10.8 mg/dl (8.4-10.2); Carbon Dioxide 28 mmol/L (22-30); Chloride 107 mmol/L (98-107); Estimated Creatinine Clearance 69 ml/min; Glucose 99 mg/dl (70-99); Potassium 4.9 mmol/L (3.5-5.1); Sodium 142 mmol/L (135-145); eGFR > 60.00
[2024-03-01] MEDS: ELIQUIS 5 MG PO (08:28)
[2024-03-01] MEDS: TOPROL XL 50 MG PO (08:28)
[2024-03-01] MEDS: ALDACTONE 25 MG PO (08:29)
[2024-03-01 11:00] VITALS: BP 168/89
--- NOTE | 2024-03-01 11:34 | CM ---
Patient seen bedside, reports no needs from CM. Patient reports per the Doctor, his drain will be removed and he will not have it upon discharge. CM reviewed IMM with patient, signed, placed in chart. CM will continue to follow for discharge
planning needs.
Plan; home no needs.
--- NOTE | 2024-03-01 11:37 | W.PN.ID1 ---
Date of Service
Date of Service: March 01, 2024
Today's Communication
Continue abx. See below...
Assessment / Plan
Pelvic collection/abscess
- S/P drainage
-Cultures with 'normal cutaneous stacey'; workup in progress.
Normal white count with left shift
Hx prostate cancer
HTN
Dyslipidemia
A-fib (new)
SUSAN
Recommendations:
Preliminary data suggest growth of coag negative staph susceptible to Keflex.
Patient for possible removal of ROBERT drain today. At discharge, transition to Keflex 500 mg p.o. 4 times daily for an additional 7 days of therapy.
Will follow-up in the office in approximate 2 weeks time.
Chief Complaint
-: Other (Pelvic abscess)
Subjective / Review of Systems
Patient seen and examined. Overall feels well. Denies any specific complaints. Notes minimal drainage from his ROBERT drain.
Review of Systems: No Fever and No Chills
Vital Signs / Physical Exam
Vital Signs
Vital Signs
Temp Pulse Resp BP Pulse Ox
98.3 F 72 18 152/89 98
03/01/24 07:00 03/01/24 07:00 03/01/24 07:00 03/01/24 07:00 03/01/24 07:00
Physical Exam
Constitutional: No Acute Distress, Well Developed, Comfortable and Non-toxic
Head: Normocephalic
Eyes: No Conjunctival Hemorrhage; Negative Sclera Anicteric
Cardiovascular: S1/S2; Negative S3/S4
Pulmonary: Non Labored
Gastrointestinal: Other (ROBERT in place with scant serous fluid.)
Neurological: Awake and Alert
Psychological: Calm
Objective Data
Lab Data
Lab Results
03/01/24 06:37
03/01/24 06:37
PT 15.3 Sec (11.4-14.6) H 02/26/24 10:01
INR 1.23 02/26/24 10:01
Estimated Creat Clear 69 ml/min 03/01/24 06:37
Total Bilirubin 0.5 mg/dl (0.2-1.3) 02/25/24 12:51
AST 25 U/L (17-59) 02/25/24 12:51
ALT 26 U/L (0-50) 02/25/24 12:51
Alkaline Phosphatase 136 U/L (38-126) H 02/25/24 12:51
Most recent labs reviewed.
Micro Results:
02/25/24 21:55 Blood Culture - Preliminary
Blood/Venous No Growth in 4 days- Final report to follow
02/25/24 21:20 Blood Culture - Preliminary
Blood/Venous No Growth in 4 days- Final report to follow
02/26/24 12:45 Wound Culture - Preliminary
Abscess Coagulase neg. staphylococcus
Gram Stain - Final
02/26/24 16:30 MRSA Screen - Final
Nose No Methicillin Resistant Staphylococcus aureus isolated.
Imaging:
02/25/2024 CT abdomen/pelvis with IV contrast: Right adnexal wall rim-enhancing fluid collection suspected to be a necrotic lymph node. Abscess formation not excluded. Clinical and laboratory correlation recommended. Moderate fecal material
throughout the colon. Mild diverticulosis. No evidence of acute diverticulitis. Nonobstructing bilateral renal stones noted.
Care Review
Plan reviewed with: Physician (Hospitalist)
--- NOTE | 2024-03-01 13:58 | PN.IRAD.UPD ---
Update Note - IRAD
- -
PPelvic abcess drain removed at bedside. New clean dry dressing placed over site. Patient tolerated procedure well.
--- NOTE | 2024-03-01 14:16 | W.PN.HOSP.TC ---
Today's Communication/Plan
-
d/c home
Assessment / Plan
Assessment / Plan
Right Pelvic abscess
Diverticulitis
- CT: right pelvic wall rim-enhancing low-density mass with a density of 18 Hounsfield units. This measures approximately 5.9 x 4.8 cm. The margins are hazy. Based on location, this is concerning for a necrotic lymph node. An abscess is less likely
but not completely excluded.
- s/p IR drainage 02/25: gallardo colored. follow drain outputs. VN service at discharge.
- maintained on zosyn in hospital, ID recommended transition to Keflex 500 mg 4 times daily for 7 days at discharge
- Drain output growing coagulase-negative Staphylococcus.
-ROBERT drain has been removed
New onset A.fib
hx of A. flutter s/p cardioversion 7 years ago
- tele
- TSH 0.89
- continue Metoprolol XL 25mg daily
- Start Eliquis 5mg BID; CHADS2-VASC =3
- Echo showing preserved EF and dilated aortic root.
- CBC cards following
Left ventricular hypertrophy
Dilated ascending aorta
-Cardiology planning for patient to follow-up in office and likely get an cardiac gated MRI
Prostate ca s/p radical prostatectomy and LN dissection 2020
- Dr. Valerio ([facility])
Essential HTN
- continue MINERVA and add BB
HLD
Obesity
- self lost 20 lbs with Keto
- on MFM for hx of hyperglycemia. most recently. 5.2%. Hold for now.
- continue statin
- on preventative ASA with Eliquis starting
Hypercalcemia
Presumed Primary Hyperparathyroidism
- elevated PTH of 111. normal Vit D25 OH level
- Increased Ca excretion on 24hr urine check . 24 hour urine ca of 370. (upper normal 300)
- Patient advised not to take calcium/vitamin D supplements
- Patient will need to f/u with endocrinology in office.
thrombocytosis, likely reactive
- follow CBC
DVT ppx: Eliquis
Code: Full
More than 30 minutes spent in discharge including
Final examination of the patient
Summarizing hospital stay
Instructions for continuing care to all relevant caregivers
Preparation of discharge records, prescriptions, and referral forms
Total time spent (in minutes):38 mins
Anticipated Discharge: Today
Subjective/Interval History
-
Date of Service: March 01, 2024
Denies abdominal pain
Afebrile overnight
No issues
Objective Data
-
Labs:
Laboratory Results
03/01/24
06:37
WBC 6.1
Hgb 12.4 L
Hct 39.1
Plt Count 405 H
Sodium 142
Potassium 4.9
Chloride 107
Carbon Dioxide 28
BUN 18
Creatinine 1.1
Glucose 99
Calcium 10.8 H
Vital Signs:
Vital Signs
Temp Pulse Resp BP Pulse Ox
99.0 F 72 18 168/89 98
03/01/24 11:00 03/01/24 11:00 03/01/24 11:00 03/01/24 11:00 03/01/24 11:00
I&O
02/29/24 03/01/24 03/02/24
06:59 06:59 06:59
Intake Total 1265 / 1265 1200 / 1200
Output Total 820 / 820 5 / 5
Balance 445 / 445 1195 / 1195
Review of Systems
-
Respiratory: Reports No Symptoms
Cardiac: Reports No Symptoms
Abdomen/GI: Reports No Symptoms
Physical Exam
-
General: No Apparent Distress
HEENT: Normocephalic and Atraumatic
Respiratory: Negative Wheezes or Rales
Cardiac: Regular Rhythm and S1/S2
GI: Soft, Nontender, Nondistended and Other (pelvic drain, gallardo colored)
Genito-urinary: No Costovertebral Tender
Musculoskeletal: No Edema and Other (Right forearm swelling)
Neuro: AO x 3
Hematologic / Lymphatic: No Lymphadenopathy
Psych: Calm
[2024-03-01 15:00] VITALS: BP 167/85
--- NOTE | 2024-03-02 14:54 | W.DCSUMMARY ---
Discharge Summary
Discharge Data
Date of Admission: 02/25/24
Date of Discharge: 03/01/24
-
Pending Results: No
Hospital Course
Discharging Physician : Dr Niraj Najera
Disposition : Home
Primary care physician : Dr Zenon Kim
Principal Discharge diagnosis :
Right pelvic abscess from diverticulitis
Recurrence of atrial fibrillation
Left ventricular hypertrophy
Dilated ascending aorta
Hypercalcemia
Reactive thrombocytosis
Chronic Discharge diagnosis :
History of atrial flutter
Prostate cancer s/p radical prostatectomy
Essential hypertension
Hyperlipidemia
Obesity
Hospital Course :
Patient is a 68-year-old male with above-mentioned past medical history came to ER for having nonresolving diverticulitis and A-fib. Patient was diagnosed for diverticulitis approximately 9 days before this admission and was discharged on oral
antibiotic course. Patient continued to have lower quadrant pain and was seen by primary care physician in office and found to have new A-fib. Patient was sent in to hospital for further evaluation. A CT scan of abdomen showing right pelvic
abscess of approximately 6 x 5 cm. Interventional radiology and infectious disease was involved in care. Interventional radiologist were able to drain 20 amount of purulent fluid from the area in question and a ROBERT drain was placed. Fluid studies
later identified organism as Staphylococcus lugdunensis. ROBERT drain was removed and patient at discharge was prescribed 7 more days of cephalexin therapy.
For patient recurrence of A-fib cardiology was consulted. Patient have history of a flutter approximately 7 years ago which was successfully converted with cardioversion. Echocardiogram was done which showed preserved ejection fraction with severe
LVH with dilated aortic root. Patient rate was able to be controlled with oral beta-jaun. Patient was started on Eliquis with increased Leobardo Vasc score. Cardiology who recommended for patient to follow-up in office and will plan to do
follow-up echocardiogram and possible MRI/MRA.
Patient also noticed to having new persistent Hypercalcemia. Parathyroid hormone levels were elevated with normal vitamin D 25-hydroxy level. 24-hour urinary calcium levels were increased. Patient was taking vitamin D/calcium supplement and was
recommended not to take this moving forward. Case discussed with endocrinology and patient will follow-up in office for further assessment.
Important imaging findings :
None
Procedure findings :
None
Discharge Plan
-
Patient Disposition: Home (Routine Discharge)
Discharge Diagnosis/Procedures: Right pelvic abscess, sigmoid diverticulitis
Condition: Fair
Diet: Low Residue
Activity: As tolerated
Driving Restrictions: As prior to admission
Bathing Restrictions: OK to Shower
Referrals:
Shruthi Stout MD [Consulting Staff] -
Andrea Velasquez DO [Active] - in two weeks
Phoenix Barreto MD [Active] - 05/09/25 11:40 am
Zenon Kim MD [Family Provider] - in one week
Prescriptions:
New
Eliquis 5 mg Tablet
5 mg PO BID Qty: 60 2RF
polyethylene glycol 3350 [HealthyLax] 17 gram Powder In Packet
17 g PO DAILYPRN PRN (Reason: constipation) Qty: 30 0RF
metoprolol succinate 50 mg Tablet Extended Release 24 Hr
50 mg PO DAILY Qty: 30 2RF
spironolactone 25 mg Tablet
25 mg PO DAILY Qty: 30 2RF
cephalexin 500 mg capsule
500 mg PO QID 7 Days Qty: 28 0RF
Continued
multivitamin Tablet
1 tab PO BID
metformin 500 mg tablet
500 mg PO DAILY
lisinopril 20 mg tablet
20 mg PO QPM
aspirin 81 mg Tablet,Delayed Release (Dr/Ec)
81 mg PO QPM
simvastatin 20 mg tablet
20 mg PO QPM
albuterol sulfate [Ventolin HFA] 90 mcg/actuation HFA aerosol inhaler
2 puff INHALATION R Q6 PRN (Reason: sob/wheezing)
tadalafil 5 mg tablet
5 mg PO QPM
Visbiome 112.5 billion cell Capsule
1 cap PO DAILY
cholecalciferol (vitamin D3) [Vitamin D3] 25 mcg (1,000 unit) Tablet,Chewable
25 mcg PO DAILY
Discontinued
amoxicillin-pot clavulanate 875-125 mg tablet
1 tab PO Q12H
Discharge Orders:
Discharge Patient (As Directed); Ordered 03/01/24
Ordered By: Niraj Najera
Discharge Date and Time
Discharge Date/Time: 03/01/24 16:45
Print Language: GEORGIAN
[2024-03-03 02:35] LABS: PTH Related Peptide LC-MS/MS <2.0 pmol/L (0.0-2.3)
== END 2024-03-01 16:45 | disposition home or self-care (01) | DRG 392 ==
LOC: 4 WEST ACU 19:36
PROVIDERS: Emergency Medicine; Radiology Diagnostic Radiology; Radiology Vascular & Interventional Radiology; ADMITTING PHYSICIAN Internal Medicine; ATTENDING PHYSICIAN Hospitalist; CONSULT PHYSICIAN Internal Medicine; CONSULT PHYSICIAN Internal Medicine Infectious Disease; EMERGENCY PHYSICIAN Emergency Medicine; FAMILY PHYSICIAN Family Medicine
PROC: 0W9J30Z Drainage of Pelvic Cavity with Drainage Device, Percutaneous Approach (ICD-10-PCS; 2024-02-26)
DX: K57.20 Diverticulitis of large intestine with perforation and abscess without bleeding (principal); I48.92 Unspecified atrial flutter; I48.91 Unspecified atrial fibrillation; E83.52 Hypercalcemia; D75.838 Other thrombocytosis; I11.9 Hypertensive heart disease without heart failure; E11.9 Type 2 diabetes mellitus without complications; L04.9 Acute lymphadenitis, unspecified; E66.9 Obesity, unspecified; E21.0 Primary hyperparathyroidism; E78.00 Pure hypercholesterolemia, unspecified; Z68.30 Body mass index [BMI] 30.0-30.9, adult; Z85.46 Personal history of malignant neoplasm of prostate
CPT/HCPCS: 49406; 74177; 80048; 80053; 81050; 82306; 82330; 82340; 82652; 83036; 83519; 83970; 84443; 84484; 85025; 85027; 85610; 87040; 87070; 87147; 87186; 87205; 93005; 93306; 96365; 99152; 99285; Q9967

== ENCOUNTER → 2024-04-10 12:34 | Outpatient (REF) | payer MEDICARE, BC, SELFPAY ==
[2024-04-10 13:39] LABS: ALT (SGPT) 17 U/L (0-50); AST (SGOT) 23 U/L (17-59); Albumin 4.7 g/dl (3.5-5.0); Alkaline Phosphatase 89 U/L (38-126); Blood Urea Nitrogen 25 mg/dl (9-20); Calcium 10.8 mg/dl (8.4-10.2); Carbon Dioxide 26 mmol/L (22-30); Chloride 107 mmol/L (98-107); Glucose 108 mg/dl (70-99); Potassium 4.8 mmol/L (3.5-5.1); Sodium 142 mmol/L (135-145); Total Bilirubin 1.1 mg/dl (0.2-1.3); Total Protein 7.3 g/dl (6.3-8.2); eGFR > 60.00
== END ==
LOC: REG 12:34
PROVIDERS: ATTENDING PHYSICIAN Family Medicine
DX: K65.1 Peritoneal abscess (principal); R10.32 Left lower quadrant pain
CPT/HCPCS: 36415; 80053

== ENCOUNTER → 2024-04-11 14:23 | Outpatient (REF) | payer MEDICARE, BC, SELFPAY | LOC: RAD 14:23 | PROVIDERS: ATTENDING PHYSICIAN Family Medicine; FAMILY PHYSICIAN Internal Medicine Cardiovascular Disease | DX: R10.32 Left lower quadrant pain (principal); K65.1 Peritoneal abscess | CPT/HCPCS: 74177; Q9967 ==

== ENCOUNTER → 2024-05-26 09:50 | Outpatient (REF) | payer MEDICARE, BC, SELFPAY | LOC: RAD 09:50 | PROVIDERS: ATTENDING PHYSICIAN Physician Assistant; FAMILY PHYSICIAN Family Medicine | DX: E83.52 Hypercalcemia (principal); E34.9 Endocrine disorder, unspecified; E21.0 Primary hyperparathyroidism | CPT/HCPCS: 77080; 77081 ==

== ENCOUNTER → 2024-05-30 07:27 | Outpatient (REF) | payer MEDICARE, BC, SELFPAY | LOC: PAVMRI 07:27 | PROVIDERS: ATTENDING PHYSICIAN Internal Medicine Cardiovascular Disease; FAMILY PHYSICIAN Family Medicine | DX: I48.19 Other persistent atrial fibrillation (principal); I51.7 Cardiomegaly; I71.21 Aneurysm of the ascending aorta, without rupture; I10 Essential (primary) hypertension | CPT/HCPCS: 75561; 75565; A9585 ==

== ENCOUNTER → 2024-06-12 08:35 | Outpatient (REF) | payer MEDICARE, BC, SELFPAY | LOC: RAD 08:35 | PROVIDERS: ATTENDING PHYSICIAN Physician Assistant; FAMILY PHYSICIAN Family Medicine | DX: E83.52 Hypercalcemia (principal); E34.9 Endocrine disorder, unspecified | CPT/HCPCS: 78071; A9500 ==

== ENCOUNTER → 2024-06-15 16:16 | Outpatient (REF) | payer MEDICARE, BC, SELFPAY | LOC: RAD 16:16 | PROVIDERS: ATTENDING PHYSICIAN Physician Assistant; FAMILY PHYSICIAN Family Medicine | DX: E83.52 Hypercalcemia (principal); E34.9 Endocrine disorder, unspecified | CPT/HCPCS: 76536 ==

== ENCOUNTER 2024-06-23 11:38 | Day surgery (SDC) | payer MEDICARE, BC, SELFPAY ==
[2024-06-23 12:14] LABS: Glucose - Point of Care 158 mg/dl (70-99)
--- NOTE | 2024-06-23 12:34 | ITS.CL.CARDI ---
Transcription Coordinator - Cardioversion
Cardioversion
Procedure Report:
Date of Procedure: June 23, 2024.
Procedure: Cardioversion.
Indication: Symptomatic atrial fibrillation.
Performing Physician: Phoenix Barreto MD
Technique: The patient was brought to the holding area. Signed informed consent was obtained. A time out was called and performed. The patient was anesthetized by the anesthesia service. Anticoagulation status was reviewed and was appropriate.
Defibrillation pads were placed anteriorly and posteriorly. A single 200 J synchronized biphasic shock restored normal sinus rhythm without severe bradycardia. Initially there was marked sinus bradycardia with several ventricular escape's but within
10 seconds normal sinus rhythm developed. There were no complications.
Conclusion: Uncomplicated cardioversion from atrial fibrillation to sinus rhythm.
Recommendation: Routine post cardioversion care. Continue joint terminal attack controller anticoagulation.
cc: Zenon Kim MD.
== END 2024-06-23 14:28 | disposition home or self-care (01) ==
LOC: CATH 11:38
PROVIDERS: ATTENDING PHYSICIAN Internal Medicine Cardiovascular Disease; FAMILY PHYSICIAN Family Medicine
DX: I48.19 Other persistent atrial fibrillation (principal); I10 Essential (primary) hypertension; E78.5 Hyperlipidemia, unspecified; E11.9 Type 2 diabetes mellitus without complications; Z85.46 Personal history of malignant neoplasm of prostate; Z79.82 Long term (current) use of aspirin; Z79.84 Long term (current) use of oral hypoglycemic drugs; Z79.01 Long term (current) use of anticoagulants
CPT/HCPCS: 82962; 92960; 93005

== ENCOUNTER 2024-09-05 06:19 | Day surgery (SDC) | payer MEDICARE, BC, SELFPAY ==
[2024-08-15 09:34] VITALS: BMI 31.7
[2024-09-05] VITALS (9 sets, daily range): BP systolic 125–154; BP diastolic 69–90; BMI 31.7
[2024-09-05 09:25] LABS: Glucose - Point of Care 137 mg/dl (70-99)
[2024-09-05] MEDS: TYLENOL 1000 MG PO (09:26)
[2024-09-05] MEDS: HEPARIN 5000 UNITS SC (09:26)
[2024-09-05] MEDS: NEURONTIN 300 MG PO (09:26)
[2024-09-05 10:42] LABS: Turbo PTH 713.9 pg/ml (13.6-85.8)
--- NOTE | 2024-09-05 11:01 | OR.RPT ---
Operative Report
Operative Report
Date of Operation: September 05, 2024
Preoperative Diagnosis: �Hyperparathyroidism - E210
Postoperative Diagnosis: Same
Surgeon: Chang Glez M.D.
Operation: Minimally Invasive Left Inferior Parathyroidectomy - 04431
Anesthesia: GET
Estimated Blood Loss: 3 cc
Drains: None
Specimen: Left lower neck nodule, rule out parathyroid adenoma
Complications: �None
Procedure:
The patient was taken to the operating room and placed in the usual supine position. After adequate general endotracheal anesthesia was established, the patient's neck was extended, prepped, and draped in the typical sterile fashion. A 4 cm
transcervical incision was made two fingerbreadths above the sternal notch. The skin incision was made with the #15 blade, and this was taken through the skin into the subcutaneous tissue. The underlying platysma muscle was divided, and subplatysmal
flaps were created superiorly to the thyroid cartilage and inferiorly to the sternal notch. Strap muscles were identified and at the midline.
The attention was turned to the left side of the neck. The left thyroid lobe was mobilized medially. During this process, the left recurrent laryngeal nerve was identified and preserved throughout the surgery. The left upper lower neck nodule was
identified and noted to be enlarged, excised, and sent to the pathology department, which showed a hypercellular parathyroid gland. The intraoperative PTH levels normalized.
After obtaining adequate hemostasis, the strap muscles were reapproximated with #3-0 Vicryl in a running fashion. The platysma muscle was reapproximated with #3-0 Vicryl in an interrupted fashion, and the skin was approximated with #4-0 Monocryl in
a running subcuticular fashion. The Steri-Strips and sterile dressings were placed. The patient tolerated the procedure well. The final instrument, needle, and sponge counts were correct. The patient was extubated and transferred to the PACU.
[2024-09-05 11:13] LABS: Turbo PTH 32.7 pg/ml (13.6-85.8)
[2024-09-05 11:49] LABS: Glucose - Point of Care 136 mg/dl (70-99)
== END 2024-09-05 13:22 | disposition home or self-care (01) ==
LOC: SDS 06:19
PROVIDERS: ATTENDING PHYSICIAN Surgery; FAMILY PHYSICIAN Family Medicine
DX: E21.0 Primary hyperparathyroidism (principal)
CPT/HCPCS: 60500; 88305; 88332; 82962; 83970; 88331; C1776

== ENCOUNTER 2025-08-10 06:50 | Day surgery (SDC) | payer MEDICARE, BC, SELFPAY | END 2025-08-10 09:04 | disposition home or self-care (01) | LOC: CATH 06:50 | PROVIDERS: ATTENDING PHYSICIAN Internal Medicine; FAMILY PHYSICIAN Family Medicine; OTHER PHYSICIAN Internal Medicine Cardiovascular Disease | DX: I48.19 Other persistent atrial fibrillation (principal); I48.3 Typical atrial flutter; I44.0 Atrioventricular block, first degree; Z79.01 Long term (current) use of anticoagulants; Z79.899 Other long term (current) drug therapy; I71.21 Aneurysm of the ascending aorta, without rupture; E78.2 Mixed hyperlipidemia; I10 Essential (primary) hypertension | CPT/HCPCS: 92960; 93005 ==